=== PATIENT | male | born 1935 | race Caucasian/White ===

== ENCOUNTER 2016-09-01 09:21 | Day surgery (SDC) | payer OTHER, MEDICARE ==
[~2016-09-01] VITALS: Ht 182.9 cm; Wt 117.9 kg
[~2016-09-01 09:21] MED LIST: AMIODARONE HCL200 MG PO; AMITRIPTYLINE H10 MG PO; AMLODIPINE BESYL5 MG PO; ASCORBIC ACID500 M3 PO; ASPIR-LOW81 MG PO; CALCITRIOL0.25 MCG PO; COUMADIN4 MG PO; DIOVAN320 MG PO; FUROSEMIDE20 MG PO; FUROSEMIDE80 MG PO; GABAPENTIN100 MG PO; METOLAZONE5 MG PO; METOPROLOL TAR100 MG PO; METOPROLOL TART25 MG PO; MICRO-K10 ME2 PO; NABUMETONE500 MG PO; OXYCODONE HCL15 MG PO; PRAVASTATIN SOD40 MG PO; QUINAPRIL HCL40 MG PO; VITAMIN B-6100 MG PO; VITAMIN D1000 INTUN PO; VITAMIN D31000 UNI2 PO; VITAMIN E400 UNIT PO; WARFARIN SODIUM2 MG PO; WARFARIN SODIUM4 MG PO
== END 2016-09-01 12:38 | disposition home or self-care (01) ==
LOC: CATH 09:21
DX: I48.0 Paroxysmal atrial fibrillation (principal); R79.1 Abnormal coagulation profile; I11.9 Hypertensive heart disease without heart failure; G47.30 Sleep apnea, unspecified; I35.0 Nonrheumatic aortic (valve) stenosis; E66.09 Other obesity due to excess calories; Z68.34 Body mass index [BMI] 34.0-34.9, adult; E78.2 Mixed hyperlipidemia; I49.8 Other specified cardiac arrhythmias; R60.0 Localized edema; Z87.891 Personal history of nicotine dependence; Z98.890 Other specified postprocedural states
CPT/HCPCS: 87641; 93312